=== PATIENT | male | born 1990 | race Hispanic/Latino ===

== ENCOUNTER 2020-03-06 13:39 | Emergency (ER) | payer SELFPAY ==
--- NOTE | 2020-03-06 14:51 | XRay Report ---
CHEST 2 VIEWS INDICATION / CLINICAL INFORMATION: SOB/CHEST PAIN. COMPARISON: None available. FINDINGS: SUPPORT DEVICES: None. HEART / MEDIASTINUM: No significant abnormality. LUNGS / PLEURA: No significant pulmonary or pleural abnormality. No pneumothorax. ADDITIONAL FINDINGS: No significant additional findings. IMPRESSION: 1. No acute findings. Signer Name: Valentino Koehler MD Signed: 03/06/2020 2:46 PM Workstation Name: [id number]
[2020-03-06] MEDS ORDERED: ASPIRIN 325 MG TAB PO ONE (14:54)
--- NOTE | 2020-03-06 15:16 | Emergency Department Report ---
ED General Adult HPI - General Chief complaint: Chest Pain Stated complaint: CHEST PAIN/MARY Time Seen by Provider: 03/06/20 14:25 Source: patient Mode of arrival: Ambulatory Limitations: No Limitations - History of Present Illness Initial comments: Patient is a 29-year-old male presents emergency room with complaints of tingling to his bilateral upper extremities that began at 1 PM today. He has associated intermittent substernal chest pain which he describes as a pressure. He states that he is also been having nausea and mild shortness of breath. He states that all of his symptoms started today at 1 PM. He denies any radiation of the pain, cough, fever, vomiting, diarrhea, leg swelling. He denies any recent travel, recent surgery, immobilization, sick contacts. He states he has a past medical history of childhood asthma. He has an allergy to Biaxin and Keflex. He states that he does vape daily. He endorses alcohol use and reports he drinks beer every couple days. He denies any drug use. He denies any family history of PA. Severity scale (0 -10): 0 - Related Data Allergies Allergy/AdvReac Type Severity Reaction Status Date / Time No Known Allergies Allergy Unverified 03/06/20 13:57 ED Review of Systems ROS: Stated complaint: CHEST PAIN/MARY Other details as noted in HPI Comment: All other systems reviewed and negative ED Past Medical Hx - Past Medical History Previous Medical History?: No Additional medical history: VERTIGO - Surgical History Past Surgical History?: No ED Physical Exam - General Limitations: No Limitations General appearance: alert, in no apparent distress - Head Head exam: Present: atraumatic, normocephalic - Eye Eye exam: Present: normal appearance - ENT ENT exam: Present: mucous membranes moist - Respiratory Respiratory exam: Present: normal lung sounds bilaterally. Absent: respiratory distress, wheezes, rales, rhonchi, stridor, chest wall tenderness, accessory muscle use, decreased breath sounds, prolonged expiratory - Cardiovascular Cardiovascular Exam: Present: regular rate, normal rhythm, normal heart sounds. Absent: systolic murmur, diastolic murmur, rubs, gallop - Neurological Exam Neurological exam: Present: alert, oriented X3 - Psychiatric Psychiatric exam: Present: normal affect, normal mood - Skin Skin exam: Present: warm, dry, intact ED Course Vital Signs 03/06/20 03/06/20 03/06/20 13:57 14:39 18:52 Temperature 98.0 F Pulse Rate 102 H 81 76 Respiratory 22 16 16 Rate Blood Pressure 191/114 157/88 146/84 [Right] O2 Sat by Pulse 98 98 100 Oximetry ED Medical Decision Making - Lab Data Result diagrams: 03/06/20 15:18 03/06/20 15:18 Lab Results 03/06/20 03/06/20 03/06/20 Range/Units 15:18 15:18 15:18 WBC 9.0 (4.5-11.0) K/mm3 RBC 4.67 (3.65-5.03) M/mm3 Hgb 15.6 H (11.8-15.2) gm/dl Hct 43.8 (35.5-45.6) % MCV 94 (84-94) fl MCH 34 H (28-32) pg MCHC 36 H (32-34) % RDW 13.2 (13.2-15.2) % Plt Count 237 (140-440) K/mm3 Lymph % (Auto) 13.3 L (13.4-35.0) % [place] % (Auto) 6.4 (0.0-7.3) % Eos % (Auto) 0.6 (0.0-4.3) % Baso % (Auto) 0.7 (0.0-1.8) % Lymph # 1.2 (1.2-5.4) K/mm3 [place] # 0.6 (0.0-0.8) K/mm3 Eos # 0.1 (0.0-0.4) K/mm3 Baso # 0.1 (0.0-0.1) K/mm3 Seg Neutrophils % 79.0 H (40.0-70.0) % Seg Neutrophils # 7.1 (1.8-7.7) K/mm3 D-Dimer < 135.00 (0-234) ng/mlDDU Sodium 137 (137-145) mmol/L Potassium 4.1 (3.6-5.0) mmol/L Chloride 97.7 L (98-107) mmol/L Carbon Dioxide 26 (22-30) mmol/L Anion Gap 17 mmol/L BUN 11 (9-20) mg/dL Creatinine 0.8 (0.8-1.3) mg/dL Estimated GFR > 60 ml/min BUN/Creatinine Ratio 14 % Glucose 147 H (75-100) mg/dL Calcium 9.6 (8.4-10.2) mg/dL Total Bilirubin 0.70 (0.1-1.2) mg/dL AST 29 (5-40) units/L ALT 34 (7-56) units/L Alkaline Phosphatase 53 (35-129) units/L Troponin T < 0.010 (0.00-0.029) ng/mL NT-Pro-B Natriuret Pep 15.33 (0-450) pg/mL Total Protein 8.2 (6.3-8.2) g/dL Albumin 4.7 (3.9-5) g/dL Albumin/Globulin Ratio 1.3 % Vital Signs (72 hours) 03/06/20 03/06/20 13:57 14:39 Temperature 98.0 F Pulse Rate 102 H 81 Respiratory 22 16 Rate Blood Pressure 191/114 157/88 [Right] O2 Sat by Pulse 98 98 Oximetry Vital Signs 03/06/20 03/06/20 03/06/20 13:57 14:39 18:52 Temperature 98.0 F Pulse Rate 102 H 81 76 Respiratory 22 16 16 Rate Blood Pressure 191/114 157/88 146/84 [Right] O2 Sat by Pulse 98 98 100 Oximetry - EKG Data EKG shows normal: sinus rhythm, axis, intervals, QRS complexes Rate: normal - EKG Data 03/06/20 17:49 ST elevation likely secondary to normal early repolarization no STEMI - Radiology Data Radiology results: report reviewed CHEST 2 VIEWS INDICATION / CLINICAL INFORMATION: SOB/CHEST PAIN. COMPARISON: None available. FINDINGS: SUPPORT DEVICES: None. HEART / MEDIASTINUM: No significant abnormality. LUNGS / PLEURA: No significant pulmonary or pleural abnormality. No pneumothorax. ADDITIONAL FINDINGS: No significant additional findings. IMPRESSION: 1. No acute findings. Signer Name: Valentino Koehler MD Signed: 03/06/2020 2:46 PM Workstation Name: [id number] Transcribed By: DT Dictated By: Eb Koehler MD Electronically Authenticated By: Eb Koehler MD Signed Date/Time: 03/06/201445 DD/ 45 TD/TT: - Medical Decision Making Patient is a 29-year-old male presents emergency room with complaints of tingling to his bilateral upper extremities that began at 1 PM today. He has associated intermittent substernal chest pain which he describes as a pressure. He states that he is also been having nausea and mild shortness of breath. He states that all of his symptoms started today at 1 PM. He denies any radiation of the pain, cough, fever, vomiting, diarrhea, leg swelling. He denies any recent travel, recent surgery, immobilization, sick contacts. He states he has a past medical history of childhood asthma. He has an allergy to Biaxin and Keflex. He states that he does vape daily. He endorses alcohol use and reports he drinks beer every couple days. He denies any drug use. He denies any family history of PA. Initial vitals with very mild tachycardia and elevated blood pressure which improved upon repeat, pt will be referred to PCP for reexamination of blood pressure to determine if pt needs medication management. EKG without signs of ischemia or STEMI. Chest x-ray with no acute process. Labs are stable. Troponin is negative x2. D-dimer is negative. Patient is low risk based on Wells criteria for PE. heart score is 2, ALY score is 1, low risk for cardiac event pt can follow up with outpatient cardiology. while discussing all results with pt and answering questions pt states that he did drink an entire monster energy drink and began having the symptoms approximately one hour later. advised pt please increase your water intake. please eat a low sodium (low salt) diet. avoid caffeine use including soda, tea, coffee, energy drinks. incorporate 30-60 minutes of aerobic exercise. please follow up with a primary care doctor. keep a blood pressure log and take your blood pressure three times a day and take this to the primary care doctor. follow up with a traffic controller cable. return to the emergency room for any new or worsening symptoms. - Differential Diagnosis Anxiety, ACS, pericarditis, PTX, PNA, CHF, GERD, anemia, PE, HTN urgency Critical care attestation.: If time is entered above; I have spent that time in minutes in the direct care of this critically ill patient, excluding procedure time. ED Disposition Clinical Impression: Tingling of both upper extremities, Chest pressure, Nausea, SOB (shortness of breath), Elevated blood pressure reading Disposition: - TO HOME OR SELFCARE Is pt being admited?: No Does the pt Need Aspirin: No Condition: Stable Instructions: Chest Pain (ED), Dyspnea (ED), Low Sodium Diet (ED), Hypertension (ED), Anxiety (ED) Additional Instructions: please increase your water intake. please eat a low sodium (low salt) diet. avoid caffeine use including soda, tea, coffee, energy drinks. incorporate 30-60 minutes of aerobic exercise. please follow up with a primary care doctor. keep a blood pressure log and take your blood pressure three times a day and take this to the primary care doctor. follow up with a traffic controller cable. return to the emergency room for any new or worsening symptoms. [facility] [Primary Care Provider] - 2-3 Days CHLOÉ CLARKE MD [Staff Physician] - 2-3 Days [facility] [place] [Outside] - 2-3 Days MAC DOMINGO MD [Staff Physician] - 2-3 Days Time of Disposition: 18:40 Print Language: [place]
[2020-03-06 15:29] LABS: Basophils # (Auto) 0.1 K/mm3 (0.0-0.1); Basophils % (Auto) 0.7 % (0.0-1.8); Eosinophils # (Auto) 0.1 K/mm3 (0.0-0.4); Eosinophils % (Auto) 0.6 % (0.0-4.3); Lymphocytes # (Auto) 1.2 K/mm3 (1.2-5.4); Lymphocytes % (Auto) 13.3 % (13.4-35.0); Mean Corpuscular HGB Conc 36 % (32-34); Mean Corpuscular Volume 94 fl (84-94); Monocytes # (Auto) 0.6 K/mm3 (0.0-0.8); Monocytes % (Auto) 6.4 % (0.0-7.3); Platelet Count 237 K/mm3 (140-440); Red Blood Count 4.67 M/mm3 (3.65-5.03); Red Cell Distribution Width 13.2 % (13.2-15.2)
[2020-03-06 15:30] LABS: Hematocrit 43.8 % (35.5-45.6); Hemoglobin 15.6 gm/dl (11.8-15.2)
[2020-03-06 15:56] LABS: Alanine Aminotransferase 34 units/L (7-56); Albumin 4.7 g/dL (3.9-5); BUN/Creatinine Ratio 14; Blood Urea Nitrogen 11 mg/dL (9-20); Calcium 9.6 mg/dL (8.4-10.2); Hemolysis Index 7
[2020-03-06 18:53] VITALS: BP 146/84
== END 2020-03-06 18:52 | disposition home or self-care (01) ==
LOC: ED 13:39
DX: R07.89 Other chest pain (principal); R06.02 Shortness of breath; R20.2 Paresthesia of skin; I10 Essential (primary) hypertension
CPT/HCPCS: 36415; 71046; 80053; 83880; 84484; 85025; 85379; 93005